=== PATIENT | female | born 1990 | race African-American/Black ===

== ENCOUNTER 2016-10-06 07:39 | Emergency (ER) | payer MEDICAID, OTHER ==
[~2016-10-06] VITALS: Ht 180.3 cm; Wt 68.6 kg
[~2016-10-06 07:39] MED LIST: PHEN12.5 PO; PHEN12.5 PR; Z.0.NO CURRENT MEDS; ZOFR4TAB OR
[2016-10-06 07:46] VITALS: BP 107/79; PULSE 75; RESP 16; TEMP 98.6; O2SAT 100
--- NOTE | 2016-10-06 08:23 | PD ---
HPI Chief Complaint: Abdominal Pain Time Seen by Provider: 07:58 Travel History International Travel<30 days: No Contact w/Intl Traveler<30days: No Traveled to known affect area: No History of Present Illness HPI 25 years old female complains of low abdominal pelvic pain. Patient states that the symptoms started about a month ago. Patient states that she has a miscarriage about 2 months ago and was seen by Dr. Omalley. Patient states that the pain started after the miscarriage problem. Patient states the pain in cramping pain sharp pain localized to lower abdomen pelvic area. Patient denies any pain radiation. Patient denies any fever. Patient denies any nausea vomiting diarrhea. Patient denied dysuria or frequency. Patient states that she has persistent clear fluid vaginal discharge for the past month. Patient saw control pills. On a scale of 1-10 the pain is an 8. PFSH Past Medical History Diminished Hearing: No Medical other: Yes ([facility] [place] 09/2016) Reproductive: Yes (PER PT "CHRONIC YEAST INFECTIONS") Immunizations Current: Yes ?: Not Menopausal: No : 3 Para: 1 Miscarriage: 1 : 0 Past Surgical History Surgical History: No Previous Surgery Social History Alcohol Use: No Tobacco Use: No Substance Use: No Allergies-Medications (Allergen,Severity, Reaction): Coded Allergies: Acetaminophen (Verified Allergy, Severe, HIVES, 10/06/16) Cinnamon (Verified Allergy, Severe, Swelling, 10/06/16) Pork (Verified Allergy, Severe, Dizziness, 10/06/16) Reported Meds & Prescriptions Reported Meds & Active Scripts Active No Active Prescriptions or Reported Medications Review of Systems General / Constitutional: No: Fever Eyes: No: Visual changes HENT: No: Headaches Cardiovascular: No: Chest Pain or Discomfort Respiratory: No: Shortness of Breath Gastrointestinal: Positive: Abdominal Pain Genitourinary: Positive: Pelvic Pain, Discharge, No: Dysuria Musculoskeletal: No: Pain Skin: No Rash Neurologic: No: Weakness Psychiatric: No: Depression Endocrine: No: Polydipsia Hematologic/Lymphatic: No: Easy Bruising Physical Exam Narrative GENERAL: Well-nourished, well-developed patient. SKIN: Focused skin assessment warm/dry. HEAD: Normocephalic. EYES: No scleral icterus. No injection or drainage. NECK: Supple, trachea midline. No JVD or lymphadenopathy. CARDIOVASCULAR: Regular rate and rhythm without murmurs, gallops, or rubs. RESPIRATORY: Breath sounds equal bilaterally. No accessory muscle use. GASTROINTESTINAL: Abdomen soft, nondistended. Mild tenderness on palpation lower abdomen. No rebound tenderness. No mass. MUSCULOSKELETAL: No cyanosis, or edema. BACK: Nontender without obvious deformity. No CVA tenderness. [employer] exam: Patient has small amount of clear vaginal discharge. No cervical motion tenderness. Uterus is nonenlarged with mild tenderness on palpation. Mild adnexal tenderness. No adnexal mass. Data Data Last Documented VS Vital Signs Date Time Temp Pulse Resp B/P Pulse Ox O2 Delivery O2 Flow Rate FiO2 10/06/16 09:42 65 18 110/73 100 Room Air 10/06/16 07:46 98.6 Orders Complete Blood Count With Diff (10/06/16 08:12) Comprehensive Metabolic Panel (10/06/16 08:12) Gc And Chlamydia Pcr (10/06/16 08:12) Wet Prep Profile (10/06/16 08:12) Urinalysis - C+S If Indicated (10/06/16 08:12) Iv Access Insert/Monitor (10/06/16 08:12) Ed Urine Pregnancytest Poc (10/06/16 08:12) Ct Abd/Pel W Iv Contrast(Rout) (10/06/16 08:23) Iohexol 350 Inj (Omnipaque 350 Inj) (10/06/16 09:30) Labs Laboratory Tests Test 10/06/16 10/06/16 10/06/16 08:00 08:20 08:25 Urine Collection Type VOIDED Urine Color YELLOW Urine Turbidity CLEAR Urine pH 6.0 Urine Specific [place] 1.014 Urine Protein NEG mg/dL Urine Glucose (UA) NEG mg/dL Urine Ketones NEG mg/dL Urine Occult Blood NEG Urine Nitrite NEG Urine Bilirubin NEG Urine Leukocyte Esterase NEG Urine WBC 0-2 /hpf Urine Squamous Epithelial 0-5 /hpf Cells Microscopic Urinalysis Comment CULT NOT INDICATED Urine Collection Time 0830 Clue Cells (Wet Prep) NONE SEEN Vaginal Trichomonas (Wet Prep) NONE SEEN Vaginal Yeast (Wet Prep) NONE SEEN White Blood Count 4.4 TH/MM3 Red Blood Count 4.36 MIL/MM3 Hemoglobin 12.6 GM/DL Hematocrit 37.5 % Mean Corpuscular Volume 86.0 FL Mean Corpuscular Hemoglobin 28.8 PG Mean Corpuscular Hemoglobin 33.5 % Concent Red Cell Distribution Width 12.9 % Platelet Count 208 TH/MM3 Mean Platelet Volume 8.6 FL Neutrophils (%) (Auto) 50.5 % Lymphocytes (%) (Auto) 41.7 % Monocytes (%) (Auto) 6.8 % Eosinophils (%) (Auto) 0.6 % Basophils (%) (Auto) 0.4 % Neutrophils # (Auto) 2.2 TH/MM3 Lymphocytes # (Auto) 1.9 TH/MM3 Monocytes # (Auto) 0.3 TH/MM3 Eosinophils # (Auto) 0.0 TH/MM3 Basophils # (Auto) 0.0 TH/MM3 CBC Comment DIFF FINAL Differential Comment Sodium Level 142 MEQ/L Potassium Level 3.4 MEQ/L Chloride Level 108 MEQ/L Carbon Dioxide Level 27.9 MEQ/L Anion Gap 6 MEQ/L Blood Urea Nitrogen 7 MG/DL Creatinine 0.61 MG/DL Estimat Glomerular Filtration 143 ML/MIN Rate Random Glucose 80 MG/DL Calcium Level 8.5 MG/DL Total Bilirubin 0.4 MG/DL Aspartate Amino Transf 17 U/L (AST/SGOT) Alanine Aminotransferase 16 U/L (ALT/SGPT) Alkaline Phosphatase 63 U/L Total Protein 7.4 GM/DL Albumin 3.5 GM/DL [facility] Medical Decision Making Medical Screen Exam Complete: Yes Emergency Medical Condition: Yes Interpretation(s) 9:40 AM. CBC within normal limit. CMP within normal limit. Potassium 3.4. UA is negative. Urine test negative. Wet prep negative. Last Impressions Abdomen/Pelvis CT 10/06/16 0823 Signed Impressions: Service Date/Time: October 09:15 - CONCLUSION: 1. Well- defined cystic structure measuring 1.5 x 1.1 cm adjacent to the urethra on the left side suggestive of a Denys cyst. 2. Small umbilical hernia containing mesenteric fat. 3. No acute pathology. Heriberto Hernandez MD Differential Diagnosis Differential diagnosis including cervicitis, PID, ovarian cyst, ovarian torsion , threatened AB, colitis, UTI, pyelonephritis, nephrolithiasis. Narrative Course 25 years old female with low abdominal pelvic pain and clear vaginal discharge. Diagnosis Primary Impression: Abdominal pain Qualified Code: R10.30 - Lower abdominal pain Patient Instructions: General Instructions Additional Instructions: Tylenol Advil for pain. Follow-up with bending machine operator. Return if persistent problem or worse. Med/Other Pt SpecificInfo: No Meds Exist/No RX given Scripts No Active Prescriptions or Reported Meds Disposition: 01 DISCHARGE HOME Condition: Stable Jorge Holley MD Oct 06, 2016 08:23
[2016-10-06 08:48] LABS: AUTOMATED NEUTROPHIL # 2.2 TH/MM3 (1.8-7.7); BASOPHIL % 0.4 % (0.0-2.0); EOSINOPHIL % 0.6 % (0.0-4.0); HEMATOCRIT 37.5 % (35.0-46.0); HEMO FLAGS DIFF FINAL; LYMPH % 41.7 % (9.0-44.0); LYMPHOCYTE # 1.9 TH/MM3 (1.0-4.8); MEAN CORPUSCULAR HEMOGLOBIN 28.8 PG (27.0-34.0); MEAN CORPUSCULAR HGB CONC 33.5 % (32.0-36.0); MONO % 6.8 % (0.0-8.0); NEUT % 50.5 % (16.0-70.0); PLATELET COUNT 208 TH/MM3 (150-450); RED BLOOD COUNT 4.36 MIL/MM3 (4.00-5.30); RED CELL DISTRIBUTION WIDTH 12.9 % (11.6-17.2); WHITE BLOOD COUNT 4.4 TH/MM3 (4.0-11.0)
[2016-10-06 08:51] LABS: CHLORIDE 108 MEQ/L (98-107); POTASSIUM 3.4 MEQ/L (3.5-5.1); SODIUM (NA) 142 MEQ/L (136-145)
[2016-10-06 08:54] LABS: ANION GAP 6 MEQ/L (5-15); BICARBONATE 27.9 MEQ/L (21.0-32.0); BLOOD UREA NITROGEN 7 MG/DL (7-18)
[2016-10-06 08:55] LABS: BLOOD, URINE NEG (NEG); GLUCOSE,URINE NEG (NEG); KETONE, URINE NEG (NEG); NITRITE,URINE NEG (NEG)
[2016-10-06 08:57] LABS: ALT (GPT) 16 U/L (10-53); AST (GOT) 17 U/L (15-37); GLOMERULAR FILTRATION RATE 143 ML/MIN (>89)
[2016-10-06 09:00] LABS: ALKALINE PHOSPHATASE 63 U/L (45-117)
[2016-10-06 09:10] LABS: TOTAL BILIRUBIN ADULT 0.4 MG/DL (0.2-1.0)
[2016-10-06 09:20] LABS: METHOD OF COLLECTION VOIDED; URINE COLOR YELLOW (YELLW/STRAW)
[2016-10-06 09:21] LABS: COMMENT (UR) CULT NOT INDICATED; COMMENT2 (UR) CULT NOT INDICATED; CULTURE IF INDICATED CULT NOT INDICATED; SQUAMOUS EPITHELIAL CELL URINE 0-5 /hpf (0-5); WBC, URINE 0-2 /hpf (0-5)
[2016-10-06] MEDS ORDERED: IOHEXOL 350 MG/ML 10 ML VIAL (for RAD DIAG) IV ONE (09:30)
--- NOTE | 2016-10-06 09:41 | RADRPT ---
EXAM DATE/TIME: 10/06/2016 09:15 CORRECTION Corrected on: October 06, 2016; [facility] COMPARISON: No previous studies available for comparison. INDICATIONS : Lower abdominal pain x 3 weeks. IV CONTRAST: 85 cc Omnipaque 350 (iohexol) IV ORAL CONTRAST: No oral contrast ingested. RADIATION DOSE: 5.31 CTDIvol (mGy) MEDICAL HISTORY : Miscarriage 2 months ago. SURGICAL HISTORY : None. ENCOUNTER: Initial ACUITY: 3 weeks PAIN SCALE: 8/10 LOCATION: Bilateral lower quadrant TECHNIQUE: Volumetric scanning of the abdomen and pelvis was performed. Using automated exposure control and ad justment of the mA and/or kV according to patient size, radiation dose was kept as low as reasonably achievable to obtain optimal diagnostic quality images. DICOM format image data is available electro nically for review and comparison. FINDINGS: LOWER LUNGS: The visualized lower lungs are clear. LIVER: Homogeneous density without lesion. There is no dilation of the biliary tree. No calcified gallston es. SPLEEN: Normal size without lesion. PANCREAS: Within normal limits. KIDNEYS: Normal in size and shape. There is no mass, stone or hydronephrosis. ADRENAL GLANDS: Within normal limits. VASCULAR: There is no aortic aneurysm. BOWEL/MESENTERY: The stomach, small bowel, and colon demonstrate no acute abnormality. There is no free intraperitone al air or fluid. No inflammatory changes. ABDOMINAL WALL: Small umbilical hernia containing mesenteric fat. RETROPERITONEUM: There is no lymphadenopathy. BLADDER: No wall thickening or mass. REPRODUCTIVE: The uterus and ovaries are grossly within normal limits for patient's age. No free fluid is seen in t he cul-de-sac. However, there is a well-defined cystic structure measuring 1.5 x 1.1 cm adjacent to t he urethra on the left side. This is suggestive of a Bartholin gland cyst. INGUINAL: There is no lymphadenopathy or hernia. MUSCULOSKELETAL: Within normal limits for patient age. CONCLUSION: 1. Well-defined cystic structure measuring 1.5 x 1.1 cm adjacent to the urethra on the left side sugg estive of a Bartholin gland cyst. 2. Small umbilical hernia containing mesenteric fat. 3. No acute pathology. Heriberto Hernandez MD on October 06, 2016 at 9:32 Board Certified Radiologist. This report was verified electronically. Heriberto Hernandez MD on October 06, 2016 at 10:04 Board Certified Radiologist. This report was verified electronically.
[2016-10-06 09:42] VITALS: BP 110/73; PULSE 65; RESP 18; O2SAT 100
[2016-10-06 11:16] LABS: CHLAMYDIA PCR NOT DETECTED (NOT DETECT); NEISSERIA PCR NOT DETECTED (NOT DETECT)
== END 2016-10-06 10:18 | disposition home or self-care (01) ==
LOC: PHED 07:39
DX: R10.2 Pelvic and perineal pain (principal)
CPT/HCPCS: 74177; 80053; 81001; 84703; 85025; 87210; 87491; 87591; 99284; Q9967